=== PATIENT | female | born 1985 | race Caucasian/White ===

== ENCOUNTER → 2018-12-28 | Outpatient (CLI) | payer OTHER | LOC: COL.RAD 10:01 | DX: S89.81XA Other specified injuries of right lower leg, initial encounter (principal); M25.461 Effusion, right knee; G89.29 Other chronic pain ==

== ENCOUNTER 2019-03-14 16:45 | Outpatient (RCR) | payer OTHER | END 2019-05-17 | disposition home or self-care (01) | LOC: WSC | DX: M22.2X1 Patellofemoral disorders, right knee (principal) ==